=== PATIENT | male | born 1960 | race Caucasian/White ===

== ENCOUNTER → 2018-08-04 | Outpatient (CLI) | payer BC ==
[~2018-08-04] MED LIST: LISI-362 PO
--- NOTE | 2018-08-04 15:58 | RADIOLOGY IMAGING REPORT ---
FACILITY: [facility] PATIENT NAME: Fausto Palomares : 1960 MR: [id number] V: [id number] EXAM DATE: ORDERING PHYSICIAN: CURT ALLEN TECHNOLOGIST: Location: [facility] - [place], [place] Patient: Fausto Palomares : 1960 Visit/Account:[id number] Date of Sevice: 08/04/2018 Study: HIP RIGHT Indication: Pain Comparison study: None available Findings: AP view the pelvis and a frog-leg view of the right hip demonstrates no evidence of acute b brandon abnormality. The right femoral head and neck are unremarkable. There is no evidence of abnormal ity of the pubic rami. There is minimal degenerative disease of both hip joints. IMPRESSION: Minimal degenerative disease of both hip joints. There is no evidence of acute bony abno rmality. Report Dictated By: Jef Cali at 08/04/2018 3:45 PM Report E-Signed By: Jef Cali at 08/04/2018 3:50 PM WSN:[email or web address]
== END ==
LOC: RAD 15:02
PROVIDERS: ATTEND Physician Assistant
DX: M16.0 Bilateral primary osteoarthritis of hip (principal)

== ENCOUNTER 2019-01-05 00:13 | Day surgery (SDC) | payer BC ==
[~2019-01-05] VITALS: Ht 175.3 cm; Wt 81.2 kg
[~2019-01-05 00:13] MED LIST changes: +HYDR12.556 PO; +LISI20TA29 PO
[2019-01-05] MEDS ORDERED: PROPOFOL(*)1000 MG/100 ML VIAL 100 ML ONE (06:59)
[2019-01-05] MEDS ORDERED: LIDOCAINE MPF 1% 5 ML VIAL ONE (06:59)
[2019-01-05 10:35] VITALS: BP 149/97
[2019-01-05] MEDS ORDERED: NORMOSOL R SOLN(*) 1000 ML BAG 1,000 ML IV PRN (12:25)
[2019-01-05] MEDS ORDERED: LIDOCAINE/SOD BICARB 8.4% SYR ID ONE (12:25)
[2019-01-05 13:00] VITALS: BP 96/73
[2019-01-05 13:21] VITALS: BP 113/83
[2019-01-05 13:28] VITALS: BP 136/102
[2019-01-05 13:45] VITALS: BP 142/95
[2019-01-05 13:46] VITALS: BP 129/92
== END 2019-01-05 13:55 | disposition home or self-care (01) ==
LOC: OR 00:13
PROVIDERS: ATTEND Family Medicine
DX: Z12.11 Encounter for screening for malignant neoplasm of colon (principal); D12.3 Benign neoplasm of transverse colon; I10 Essential (primary) hypertension
CPT/HCPCS: 00811; 45380; 88305; J2001; J2704

== ENCOUNTER → 2019-03-02 | Outpatient (REF) | payer BC | LOC: ZZSENDIN 16:18 | PROVIDERS: ATTEND Physician Assistant | DX: R97.20 Elevated prostate specific antigen [PSA] (principal) | CPT/HCPCS: 84153 ==